=== PATIENT | male | born 1970 | race Caucasian/White ===

== ENCOUNTER 2017-01-14 17:24 | Emergency (ER) | payer BC ==
[~2017-01-14] VITALS: Ht 165.1 cm; Wt 54.0 kg
--- NOTE | 2017-01-14 17:42 | PHYS DOC ---
Adult General Chief Complaint Chief Complaint: NAUSEA/VOMITING/DIARRHA HPI HPI Patient is a 46 year old male presenting to the emergency department for evaluation of multiple complaints including abdominal pain nausea vomiting and tremors weight loss and not feeling well. Patient says that the abdominal pain has been going on for approximately one week but the weight loss has been going on for approximately 3 weeks. Patient denies any prior abdominal surgeries and he denies any black or bloody stools and no blood in his emesis. He has had no fevers but has had some chills. Patient is in no obvious distress slightly tachycardic. Review of Systems Review of Systems Constitutional: Denies fever or chills [] Respiratory: Denies cough or shortness of breath [] Cardiovascular: No additional information not addressed in HPI [] GI: + abdominal pain, nausea, vomiting. No bloody stools or diarrhea [] : Denies dysuria or hematuria [] Musculoskeletal: Denies back pain or joint pain [] Neurologic: Denies headache, focal weakness or sensory changes [] Current Medications Current Medications Current Medications Medications (Trade) Dose Ordered Sig/Arpita Start Time Stop Time Status Last Admin Dose Admin Info (Do NOT chart on this entry -- for MONITORING) 1 each PRN DAILY PRN 01/14/17 18:45 01/16/17 18:44 Iohexol (Omnipaque 300 Mg/ml) 75 ml 1X ONCE 01/14/17 18:45 01/14/17 18:46 DC 01/14/17 18:57 75 ML Lorazepam (Ativan) 2 mg 1X ONCE 01/14/17 18:00 01/14/17 18:01 DC 01/14/17 18:06 2 MG Ondansetron HCl (Zofran) 8 mg 1X ONCE 01/14/17 18:00 01/14/17 18:01 DC 01/14/17 18:07 8 MG Sodium Chloride 1,000 ml @ 1,000 mls/hr 1X ONCE 01/14/17 18:00 01/14/17 18:59 DC 01/14/17 18:06 1,000 MLS/HR Allergies Allergies Allergies Coded Allergies Type Severity Reaction Last Updated Verified No Known Drug Allergies 01/14/17 No Physical Exam Physical Exam Constitutional: Well developed, well nourished, no acute distress, non-toxic appearance. [] Cardiovascular:Heart rate regular rhythm, no murmur [] Lungs & Thorax: Bilateral breath sounds clear to auscultation [] Abdomen: Bowel sounds normal, soft, diffuse abdominal tenderness, no rebound or guarding, no masses, no pulsatile masses. [] Skin: Warm, dry, no erythema, no rash. [] Back: No tenderness, no CVA tenderness. [] Current Patient Data Vital Signs Vital Signs Date Time Temp Pulse Resp B/P (MAP) Pulse Ox O2 Delivery O2 Flow Rate FiO2 01/14/17 17:38 98.4 90 16 166/94 (118) 98 Room Air 98.4 Lab Values Laboratory Tests Test 01/14/17 17:37 01/14/17 18:00 Urine Color Cinthya Urine Clarity Clear Urine pH 7.5 Urine Specific Sidney >=1.030 Urine Protein 100 mg/dL (NEG-TRACE) Urine Glucose (UA) 100 mg/dL (NEG) Urine Ketones (Stick) 15 mg/dL (NEG) Urine Blood Negative (NEG) Urine Nitrite Negative (NEG) Urine Bilirubin Small (NEG) Urine Urobilinogen Dipstick 1.0 mg/dL (0.2 mg/dL) Urine Leukocyte Esterase Trace (NEG) Urine RBC 0 /HPF (0-2) Urine WBC 1-4 /HPF (0-4) Urine Squamous Epithelial Cells Occ /LPF Urine Bacteria 0 /HPF (0-FEW) Urine Mucus Mod /LPF Urine Opiates Screen Neg (NEG) Urine Methadone Screen Neg (NEG) Urine Barbiturates Neg (NEG) Urine Phencyclidine Screen Neg (NEG) Urine Amphetamine/Methamphetamine Neg (NEG) Urine Benzodiazepines Screen Neg (NEG) Urine Cocaine Screen Neg (NEG) Urine Cannabinoids Screen Pos (NEG) Urine Ethyl Alcohol Neg (NEG) White Blood Count 6.4 x10^3/uL (4.0-11.0) Red Blood Count 4.88 x10^6/uL (4.30-5.70) Hemoglobin 16.4 g/dL (13.0-17.5) Hematocrit 47.0 % (39.0-53.0) Mean Corpuscular Volume 96 fL (79-100) Mean Corpuscular Hemoglobin 34 pg (25-35) Mean Corpuscular Hemoglobin Concent 35 g/dL (31-37) Red Cell Distribution Width 14.2 % (11.5-14.5) Platelet Count 124 x10^3/uL (140-400) L Neutrophils (%) (Auto) 81 % (31-73) H Lymphocytes (%) (Auto) 10 % (24-48) L Monocytes (%) (Auto) 8 % (0-9) Eosinophils (%) (Auto) 0 % (0-3) Basophils (%) (Auto) 1 % (0-3) Neutrophils # (Auto) 5.1 x10^3uL (1.8-7.7) Lymphocytes # (Auto) 0.6 x10^3/uL (1.0-4.8) L Monocytes # (Auto) 0.5 x10^3/uL (0.0-1.1) Eosinophils # (Auto) 0.0 x10^3/uL (0.0-0.7) Basophils # (Auto) 0.1 x10^3/uL (0.0-0.2) Sodium Level 136 mmol/L (136-145) Potassium Level 4.0 mmol/L (3.5-5.1) Chloride Level 101 mmol/L (98-107) Carbon Dioxide Level 28 mmol/L (21-32) Anion Gap 7 (6-14) Blood Urea Nitrogen 8 mg/dL (8-26) Creatinine 0.8 mg/dL (0.7-1.3) Estimated GFR (Cockcroft-Gault) 105.0 BUN/Creatinine Ratio 10 (6-20) Glucose Level 184 mg/dL (70-99) H Calcium Level 8.4 mg/dL (8.5-10.1) L Magnesium Level 1.9 mg/dL (1.8-2.4) Total Bilirubin 1.0 mg/dL (0.2-1.0) Aspartate Amino Transferase (AST) 168 U/L (15-37) H Alanine Aminotransferase (ALT) 188 U/L (16-63) H Alkaline Phosphatase 95 U/L (46-116) Creatine Kinase 804 U/L (39-308) H Total Protein 7.2 g/dL (6.4-8.2) Albumin 3.5 g/dL (3.4-5.0) Albumin/Globulin Ratio 0.9 (1.0-1.7) L Lipase 314 U/L (73-393) Ethyl Alcohol Level < 10 mg/dL (0-10) Laboratory Tests 10/5/17 18:00 Laboratory Tests 01/14/17 18:00 Radiology/Procedures Radiology/Procedures CT study of the abdomen and pelvis with contrast Clinical indications: Weight loss of 26 pounds and 3 weeks. Nausea and vomiting and diarrhea. Diffuse abdominal pain. TECHNIQUE: After IV infusion of 75 cc of Omnipaque 300, helical CT scanning of the abdomen and pelvis was performed. No GI contrast was administered. This may decrease the sensitivity to detect GI tract pathology. PQRS compliance Statement One or more of the following individualized dose reduction techniques were utilized for this study: 1. Automated exposure control 2. Adjustment of the mA and/or kV according to patient size 3. Use of iterative reconstruction technique COMPARISON: None available. FINDINGS: There is a small focus of hypodensity involving the left lobe liver adjacent to the fissure consistent with a normal finding of differential perfusion attenuation. There is diffuse fatty infiltration of the liver. The spleen is not enlarged. The pancreas is normal. The gallbladder is normal and no extrahepatic biliary ductal dilatation is seen. No adrenal mass is evident. Subcentimeter hypodense nodule of the mid aspect left kidney seen most likely representing a small cyst. No hydronephrosis or hydroureter is seen. Urinary bladder wall is smooth. No focal aneurysmal dilatation of the abdominal aorta is seen. No enlarged abdominal or pelvic lymphadenopathy is seen. Colonic diverticulosis is seen. There is diffuse wall thickening of the colon more significantly involving the sigmoid colon may be seen with colitis. The appendix is normal. The terminal ileum is unremarkable. No pericolonic inflammatory change is seen. No free air or free fluid or mesenteric inflammatory change is seen. No lung base consolidation is evident. A bone island of the right acetabulum is seen. There is a diffuse disc protrusion at L3-4. IMPRESSION: Diffuse wall thickening of colon most prominently involving the sigmoid colon consistent with colitis. No pericolonic inflammatory change is seen. Diverticulosis. No bowel obstruction is seen. Small subcentimeter hypodense nodule of the left kidney which is indeterminate but most likely represents a small cyst. Diffuse disc protrusion at L3-4. Fatty infiltration of the liver. Electronically signed by: Best Coyle MD (01/14/2017 7:28 PM) [facility] DICTATED and SIGNED BY: BEST COYLE MD DATE: 01/14/171915 Course & Med Decision Making Course & Med Decision Making Patient presenting to the emergency department for evaluation of abdominal pain and weight loss nausea and vomiting. He assured me that he is not withdrawing from anything. It appears that he has colitis on his CT and he is feeling better with a repeat normal abdominal exam. Patient will be treated supportively as an outpatient with Levaquin and Flagyl pain and nausea medications told to follow with primary care provider in 2-3 days and come back to the ED sooner with worsening pain fevers vomiting or other general concerns. Patient aware and agreeable with plan for discharge and verbalized understanding of the need for short-term follow-up and strict ED return precautions discussed as above. Dragon Disclaimer Dragon Disclaimer This electronic medical record was generated, in whole or in part, using a voice recognition dictation system. Departure Departure Impression: Primary Impression: Colitis Additional Impression: Abdominal pain Disposition: HOME, SELF-CARE Condition: STABLE Referrals: MAYRA FELICIANO MD, SCOTT S MD Patient Instructions: Colitis Scripts Ondansetron (ZOFRAN ODT) 4 Mg Tab.rapdis 4 MG PO BID Y for NAUSEA/VOMITING, #10 TAB Prov: XIOMARA QIUNTANA DO 01/14/17 Hydrocodone/Apap 5-325 (NORCO 5-325 TABLET) 1 Each Tablet 1 TAB PO PRN Q6HRS Y for PAIN, #20 TAB 0 Refills Prov: XIOMARA QUINTANA DO 01/14/17 Metronidazole (FLAGYL) 500 Mg Tablet 1 TAB PO BID, #13 TAB Prov: XIOMARA QUINTANA DO 01/14/17 Levofloxacin (LEVAQUIN) 500 Mg Tablet 1 TAB PO DAILY, #6 TAB Prov: XIOMARA QUINTANA DO 01/14/17 Problem Qualifiers XIOMARA QUINTANA DO Jan 14, 2017 17:42
[2017-01-14] MEDS ORDERED: IV NORMAL SALINE 1000ML BAG 1,000 ML IV ONE (18:00)
[2017-01-14] MEDS ORDERED: ONDANSETRON PF 4 MG/2 ML VIAL. IV ONE (18:00)
[2017-01-14 18:13] LABS: BASO # 0.1 x10^3/uL (0.0-0.2); BASO % 1 % (0-3); EOS % 0 % (0-3); HEMOGLOBIN 16.4 g/dL (13.0-17.5); LYMPH # 0.6 x10^3/uL (1.0-4.8); LYMPH % 10 % (24-48); MEAN CORPUSCULAR HEMOGLOBIN 34 pg (25-35); MEAN CORPUSCULAR HGB CONC 35 g/dL (31-37); MEAN CORPUSCULAR VOLUME 96 fL (79-100); MONO % 8 % (0-9); NEUT % 81 % (31-73); PLATELET COUNT 124 x10^3/uL (140-400); RED BLOOD COUNT 4.88 x10^6/uL (4.30-5.70); RED CELL DISTRIBUTION WIDTH 14.2 % (11.5-14.5); WHITE BLOOD COUNT 6.4 x10^3/uL (4.0-11.0)
[2017-01-14 18:17] LABS: BILIRUBIN,URINE SMALL (NEG); GLUCOSE,URINE 100 mg/dL (NEG); NITRITE,URINE NEGATIVE (NEG); PH,URINE 7.5; PROTEIN,URINE 100 mg/dL (NEG-TRACE)
[2017-01-14 18:24] LABS: BARBITURATES NEG (NEG); BENZODIAZEPINES NEG (NEG); CANNABINOIDS POS (NEG); COCAINE NEG (NEG); METHADONE NEG (NEG); OPIATES NEG (NEG); PHENCYCLIDINE NEG (NEG)
[2017-01-14 18:29] LABS: BACTERIA,URINE 0 /HPF (0-FEW); RBC,URINE 0 /HPF (0-2)
[2017-01-14 18:30] LABS: SQUAMOUS EPITHELIAL CELL,UR OCC /LPF
[2017-01-14 18:33] LABS: CALCIUM 8.4 mg/dL (8.5-10.1); CREATININE 0.8 mg/dL (0.7-1.3)
[2017-01-14 18:40] LABS: ALBUMIN 3.5 g/dL (3.4-5.0); ALBUMIN/GLOBULIN RATIO 0.9 (1.0-1.7); MAGNESIUM 1.9 mg/dL (1.8-2.4); TOTAL PROTEIN 7.2 g/dL (6.4-8.2)
[2017-01-14] MEDS ORDERED: IOHEXOL 300 MG/ML 75 ML VIAL IV ONE (18:45)
[2017-01-14] MEDS ORDERED: CONTRAST GIVEN MC PRN (18:45)
--- NOTE | 2017-01-14 19:31 | RAD ---
CT study of the abdomen and pelvis with contrast Clinical indications: Weight loss of 26 pounds and 3 weeks. Nausea and vomiting and diarrhea. Diffuse abdominal pain. TECHNIQUE: After IV infusion of 75 cc of Omnipaque 300, helical CT scanning of the abdomen and pelvis was performed. No GI contrast was administered. This may decrease the sensitivity to detect GI tract pathology. PQRS compliance Statement One or more of the following individualized dose reduction techniques were utilized for this study: 1. Automated exposure control 2. Adjustment of the mA and/or kV according to patient size 3. Use of iterative reconstruction technique COMPARISON: None available. FINDINGS: There is a small focus of hypodensity involving the left lobe liver adjacent to the fissure consistent with a normal finding of differential perfusion attenuation. There is diffuse fatty infiltration of the liver. The spleen is not enlarged. The pancreas is normal. The gallbladder is normal and no extrahepatic biliary ductal dilatation is seen. No adrenal mass is evident. Subcentimeter hypodense nodule of the mid aspect left kidney seen most likely representing a small cyst. No hydronephrosis or hydroureter is seen. Urinary bladder wall is smooth. No focal aneurysmal dilatation of the abdominal aorta is seen. No enlarged abdominal or pelvic lymphadenopathy is seen. Colonic diverticulosis is seen. There is diffuse wall thickening of the colon more significantly involving the sigmoid colon may be seen with colitis. The appendix is normal. The terminal ileum is unremarkable. No pericolonic inflammatory change is seen. No free air or free fluid or mesenteric inflammatory change is seen. No lung base consolidation is evident. A bone island of the right acetabulum is seen. There is a diffuse disc protrusion at L3-4. IMPRESSION: Diffuse wall thickening of colon most prominently involving the sigmoid colon consistent with colitis. No pericolonic inflammatory change is seen. Diverticulosis. No bowel obstruction is seen. Small subcentimeter hypodense nodule of the left kidney which is indeterminate but most likely represents a small cyst. Diffuse disc protrusion at L3-4. Fatty infiltration of the liver. Electronically signed by: Manuel Coyle MD (01/14/2017 7:28 PM) [facility]
[2017-01-14] MEDS ORDERED: HYDR-971 PO (19:47)
[2017-01-14] MEDS ORDERED: LEVO500T59 PO (19:47)
[2017-01-14] MEDS ORDERED: METR500T PO (19:47)
[2017-01-14] MEDS ORDERED: ONDA4TAB10 PO (19:47)
[2017-01-14] MEDS ORDERED: metroNIDAZOLE 500 MG TABLET PO ONE (20:00)
[2017-01-14 20:02] VITALS: BP 134/70
== END 2017-01-14 20:33 | disposition home or self-care (01) ==
LOC: ER 17:24
DX: K52.9 Noninfective gastroenteritis and colitis, unspecified (principal); R63.4 Abnormal weight loss
CPT/HCPCS: 36415; 74177; 80053; 80307; 81001; 82550; 83690; 83735; 85025; 87086; 96361; 96374; 96375; 99285; G0480; J2060; J2405; J7030; Q9967; G0479

== ENCOUNTER 2017-08-07 12:46 | Inpatient (IN) | payer SELFPAY, BC ==
[2017-08-07] MEDS: IPRATRPIUM/ALBUTEROL 0.5/2.5MG 3 ML NEBU. NEB (13:17)
[2017-08-07 13:25] LABS: ADD MAN DIFF? NO
[2017-08-07 13:29] LABS: BASO # 0.1 x10^3/uL (0.0-0.2); BASO % 1 % (0-3); EOS # 0.1 x10^3/uL (0.0-0.7); EOS % 2 % (0-3); HEMATOCRIT 45.4 % (39.0-53.0); LYMPH # 1.6 x10^3/uL (1.0-4.8); LYMPH % 28 % (24-48); MEAN CORPUSCULAR HEMOGLOBIN 35 pg (25-35); MEAN CORPUSCULAR HGB CONC 35 g/dL (31-37); MEAN CORPUSCULAR VOLUME 100 fL (79-100); MONO # 0.4 x10^3/uL (0.0-1.1); MONO % 8 % (0-9); NEUT # 3.4 x10^3uL (1.8-7.7); NEUT % 61 % (31-73); PLATELET COUNT 195 x10^3/uL (140-400); RED BLOOD COUNT 4.54 x10^6/uL (4.30-5.70); RED CELL DISTRIBUTION WIDTH 14.6 % (11.5-14.5); WHITE BLOOD COUNT 5.6 x10^3/uL (4.0-11.0)
[2017-08-07 13:38] LABS: ANION GAP 9 (6-14); BLOOD UREA NITROGEN 9 mg/dL (8-26); BUN/CREATININE RATIO 10 (6-20); CARBON DIOXIDE 25 mmol/L (21-32); CHLORIDE 106 mmol/L (98-107); CREATININE 0.9 mg/dL (0.7-1.3); GFR 91.3; GLUCOSE 100 mg/dL (70-99); POTASSIUM 4.4 mmol/L (3.5-5.1); SODIUM 140 mmol/L (136-145)
[2017-08-07 13:44] LABS: ALBUMIN 3.6 g/dL (3.4-5.0); ALBUMIN/GLOBULIN RATIO 0.9 (1.0-1.7); ALK PHOS 112 U/L (46-116); ALT (SGPT) 56 U/L (16-63); AST (SGOT) 54 U/L (15-37); MAGNESIUM 2.2 mg/dL (1.8-2.4); TOTAL BILIRUBIN 0.4 mg/dL (0.2-1.0); TOTAL PROTEIN 7.6 g/dL (6.4-8.2)
[2017-08-07 13:46] LABS: TROPONINI < 0.017 ng/mL (0.000-0.055)
[2017-08-07 13:54] LABS: CKMB INDEX 3.6 % (0-4); CKMB MASS 14.6 ng/mL (0.0-3.6); CREATINE KINASE 402 U/L (39-308)
[2017-08-07 13:58] LABS: D-DIMER 0.87 ug/mlFEU (0.00-0.50)
[2017-08-07 14:02] LABS: NT-PRO BNP < 5 pg/mL (0-124)
[2017-08-07] MEDS ORDERED: IOHEXOL 300 MG/ML 100ML VIAL. IV (15:00)
[2017-08-07] MEDS ORDERED: CONTRAST GIVEN MC (15:00)
[2017-08-07] MEDS: AZITHROMYCIN 250 MG TABLET. PO (16:24)
[2017-08-07 18:46] LABS: TROPONINI < 0.017 ng/mL (0.000-0.055)
[2017-08-07] MEDS: DEXAMETHASONE SOD PHOS 4 MG/ML VIAL IV (22:04)
[2017-08-07] MEDS ORDERED: ZOLPIDEM 5 MG TABLET. PO (22:30)
[2017-08-07] MEDS: ZOLPIDEM 5 MG TABLET. PO (22:53)
[2017-08-07] MEDS: oxyCODONE/APAP 5/325 1 TAB TABLET PO (22:54)
[2017-08-07 23:05] LABS: TROPONINI < 0.017 ng/mL (0.000-0.055)
[2017-08-08] MEDS: DEXAMETHASONE SOD PHOS 4 MG/ML VIAL IV ×2 (06:13)
[2017-08-08] MEDS: IPRATRPIUM/ALBUTEROL 0.5/2.5MG 3 ML NEBU. NEB ×4 (08:45→20:20)
[2017-08-08] MEDS: predniSONE 20 MG TABLET PO (09:02)
[2017-08-08] MEDS: NICOTINE 21MG PATCH. TD (09:02)
[2017-08-08] MEDS ORDERED: diphenhydrAMINE HCL 25 MG CAPSULE PO (09:30)
[2017-08-08] MEDS: PANTOPRAZOLE 40 MG TABLET.DR. PO (10:42)
[2017-08-08] MEDS ORDERED: chlordiazePOXIDE HCL 25 MG CAPSULE PO ×2 (12:15)
[2017-08-08] MEDS ORDERED: LORazepam 1 MG TABLET PO ×2 (12:15)
[2017-08-08] MEDS ORDERED: IBUPROFEN 800 MG TABLET. PO (14:00)
[2017-08-08] MEDS: SERTRALINE 50 MG TABLET. PO (14:13)
[2017-08-08] MEDS: THIAMINE 100 MG TABLET. PO (14:13)
[2017-08-08] MEDS: MULTIVITAMIN with MINERAL TABLET. PO (14:13)
[2017-08-08] MEDS: AZITHROMYCIN 250 MG TABLET. PO (14:13)
[2017-08-08] MEDS: FOLIC ACID 1 MG TABLET. PO (14:14)
[2017-08-08] MEDS: ZOLPIDEM 5 MG TABLET. PO ×2 (20:44→21:45)
[2017-08-08] MEDS: CYCLOBENZAPRINE 10 MG TABLET. PO (20:44)
[2017-08-09] MEDS: IPRATRPIUM/ALBUTEROL 0.5/2.5MG 3 ML NEBU. NEB ×2 (08:09→12:11)
[2017-08-09] MEDS: predniSONE 20 MG TABLET PO (09:20)
[2017-08-09] MEDS: AZITHROMYCIN 250 MG TABLET. PO (09:20)
[2017-08-09] MEDS: THIAMINE 100 MG TABLET. PO (09:20)
[2017-08-09] MEDS: MULTIVITAMIN with MINERAL TABLET. PO (09:20)
[2017-08-09] MEDS: FOLIC ACID 1 MG TABLET. PO (09:20)
[2017-08-09] MEDS: SERTRALINE 50 MG TABLET. PO (09:20)
[2017-08-09] MEDS: PANTOPRAZOLE 40 MG TABLET.DR. PO (09:20)
[2017-08-09] MEDS: NICOTINE 21MG PATCH. TD (09:21)
[2017-08-09] MEDS ORDERED: LACTOBACILLUS RHAMNOSUS GG 1 CAPSULE. PO (15:00)
== END 2017-08-09 14:08 | disposition home or self-care (01) | DRG 192 ==
LOC: ER 12:46 → 5 NORTH 15:38
DX: J44.0 Chronic obstructive pulmonary disease with (acute) lower respiratory infection (principal); F12.90 Cannabis use, unspecified, uncomplicated; J44.1 Chronic obstructive pulmonary disease with (acute) exacerbation; J20.9 Acute bronchitis, unspecified; F17.210 Nicotine dependence, cigarettes, uncomplicated; F32.9 Major depressive disorder, single episode, unspecified; F41.9 Anxiety disorder, unspecified; G89.29 Other chronic pain; M54.9 Dorsalgia, unspecified; K21.9 Gastro-esophageal reflux disease without esophagitis; R79.1 Abnormal coagulation profile; Z82.49 Family history of ischemic heart disease and other diseases of the circulatory system; Z82.5 Family history of asthma and other chronic lower respiratory diseases; Z56.3 Stressful work schedule; Z79.899 Other long term (current) drug therapy; Z71.6 Tobacco abuse counseling
CPT/HCPCS: 36415; 71045; 71275; 80053; 82553; 83735; 83880; 84484; 85025; 85379; 93005; 94640; 94760; 99285; 99285-25; 99406; J1100; J7512; J7620; Q0144

== ENCOUNTER 2017-10-03 19:36 | Emergency (ER) | payer SELFPAY ==
[2017-10-03 20:50] LABS: ANION GAP 13 (6-14); BLOOD UREA NITROGEN 6 mg/dL (8-26); CALCIUM 8.6 mg/dL (8.5-10.1); CARBON DIOXIDE 25 mmol/L (21-32); CHLORIDE 102 mmol/L (98-107); CREATININE 0.9 mg/dL (0.7-1.3); GFR 91.3; GLUCOSE 86 mg/dL (70-99); POTASSIUM 3.8 mmol/L (3.5-5.1); SODIUM 140 mmol/L (136-145)
[2017-10-03 20:58] LABS: THYROID STIM HORMONE (TSH) 0.628 uIU/mL (0.358-3.74)
[2017-10-03] MEDS: LORazepam 1 MG TABLET PO (21:00)
[2017-10-03 21:02] LABS: ACETAMIN < 2 mcg/ml (10-30); ETHANOL 367 mg/dL (0-10); SALIC 4.9 mg/dL (2.8-20.0)
== END 2017-10-03 22:17 | disposition home or self-care (01) ==
LOC: ER 19:36
DX: F10.129 Alcohol abuse with intoxication, unspecified (principal); F32.9 Major depressive disorder, single episode, unspecified; F17.210 Nicotine dependence, cigarettes, uncomplicated; Z91.5 Personal history of self-harm
CPT/HCPCS: 36415; 80048; 80329; 84443; 99284; G0480; G6039